=== PATIENT | female | born 1970 | race Caucasian/White ===

== ENCOUNTER 2018-08-10 08:11 | Day surgery (SDC) | payer OTHER ==
[~2018-08-10] VITALS: Ht 170.2 cm; Wt 101.6 kg
[~2018-08-10 08:11] MED LIST: CEFAZOLIN 1 GM IVPB PREMIX 50 ML IV ONE
[2018-08-10] MEDS ORDERED: PROPOFOL 200MG/ 20ML VIAL (DIPRIVAN) IV ONE (10:20)
[2018-08-10] MEDS ORDERED: ONDANSETRON HCL 4 MG/2 ML VIAL IVP ONE (10:20)
[2018-08-10] MEDS ORDERED: LR 1,000 ML IV.SOLN IV ONE (10:20)
[2018-08-10] MEDS ORDERED: MIDAZOLAM HCL 5 MG/5 ML VIAL IVP ONE (10:20)
[2018-08-10] MEDS ORDERED: ROCURONIUM BROMIDE 10 MG/ML (ZEMURON) IV ONE (10:20)
[2018-08-10] MEDS ORDERED: fentaNYL CITRATE 250 MCG/5 ML AMP IV ONE (10:20)
[2018-08-10] MEDS ORDERED: SEVOFLURANE 15 MIN GAS INH ONE (10:20)
[2018-08-10] MEDS ORDERED: BUPIVACAINE /PF 0.25% 30 ML VIAL INJ ONE (10:20)
[2018-08-10] MEDS ORDERED: NS IRRIG SOLN 1000 ML IR ONE (10:20)
[2018-08-10] MEDS ORDERED: LR 1,000 ML IV SCH (11:05)
[2018-08-10] MEDS ORDERED: HYDROmorphone 2 MG/ML VIAL IVP PRN (11:15)
[2018-08-10] MEDS ORDERED: METOCLOPRAMIDE HCL 10 MG/2 ML VIAL IVP PRN (11:15)
[2018-08-10] MEDS ORDERED: HYDROmorphone 1 MG INJ. 1 MG/ML AMPUL IVP PRN ×3 (11:15→14:00)
[2018-08-10 12:37] VITALS: BP_SYST 128
[2018-08-10] MEDS ORDERED: HYDROcodone/ACETAMIN 5-325 MG TAB (NORCO/ VICODIN) ONE (13:22)
[2018-08-10] MEDS ORDERED: HYDROcodone/ACETAMIN 5-325 MG TAB (NORCO/ VICODIN) PO PRN ×2 (14:00)
[2018-08-10] MEDS ORDERED: D5/0.45 NS 1,000 ML IV SCH (14:00)
== END 2018-08-10 14:10 | disposition home or self-care (01) ==
LOC: SDS 08:11 → SMU 08:13 → SDS 14:10
PROVIDERS: ATTEND Colon & Rectal Surgery
DX: N60.91 Unspecified benign mammary dysplasia of right breast (principal); J45.909 Unspecified asthma, uncomplicated; M79.7 Fibromyalgia; E78.5 Hyperlipidemia, unspecified; F33.9 Major depressive disorder, recurrent, unspecified; Z68.34 Body mass index [BMI] 34.0-34.9, adult; Z80.3 Family history of malignant neoplasm of breast; Z82.49 Family history of ischemic heart disease and other diseases of the circulatory system; Z90.49 Acquired absence of other specified parts of digestive tract; Z90.710 Acquired absence of both cervix and uterus; Z98.890 Other specified postprocedural states; Z79.899 Other long term (current) drug therapy; I10 Essential (primary) hypertension; E66.01 Morbid (severe) obesity due to excess calories; G62.9 Polyneuropathy, unspecified; R92.0 Mammographic microcalcification found on diagnostic imaging of breast
CPT/HCPCS: 19081; 19301; 88307; 88342; J0690; J2250; J2405; J2704; J3010; J3490; J7120; 76098-TC; 88305